=== PATIENT | male | born 1950 | race Caucasian/White ===

== ENCOUNTER → 2016-10-29 | Day surgery (SDC) | payer BC, OTHER ==
[~2016-10-29] MED LIST: ALLER-EASE180 MG PO; ASPIRIN81 M2 PO; LIPITOR20 MG PO; MULTI-DAY VITA1 EACH
--- NOTE | ~2016-10-29 | OR ---
Unit #: [id number] #: [id number] Patient: GINNA JOHNSON [id number] [address] [place], [place] [address] [id number] O MR#: [id number] NAME: GINNA JOHNSON ROOM: Date of Procedure: 10/29/2016 Admission Date: 10/29/2016 Surgeon: George Berger M.D. : 1950 Attending Physician: George Berger M.D. Primary Care Physician: Elroy Bailey M.D. OPERATIVE REPORT PREOPERATIVE DIAGNOSIS Colorectal cancer screening in an average-risk patient. PROCEDURE PERFORMED Colonoscopy up to cecum and terminal ileum with excellent preparation and good visualization. POSTOPERATIVE DIAGNOSES 1. Mild sigmoid and descending colon diverticulosis. 2. Small internal hemorrhoids. 3. Rest of the examination up to cecum and terminal ileum was normal. The quality of the prep was excellent. No polyps were present. RECOMMENDATIONS Repeat colonoscopy in 10 years. SEDATION USED MAC. DESCRIPTION OF PROCEDURE Following detailed explanation of the potential risks and complications of a colonoscopy, namely perforation, bleeding, and complications related to sedation, the patient was brought to GI lab and laid in the left lateral decubitus position. A digital rectal examination was performed, which was normal. Lubricated tip of the Olympus video colonoscope was inserted through the anus and advanced under direct vision. The scope was advanced and passed up to sigmoid into descending colon. Multiple small to medium-sized diverticula were noticed in this area. The scope tip was then navigated all the way up to cecum with visualization of the ileocecal valve and the appendiceal orifice. Preparation was excellent with good visualization and photodocumentation was obtained. Last several inches of the terminal ileum also visualized after intubation of the ileocecal valve and appeared normal. Successive segments of the colonic mucosa were examined upon withdrawal and appeared unremarkable. There being no polyps, mass lesions, or AVMs. Other than the left-sided diverticula, the patient was also noted to have small internal hemorrhoids seen at the anal verge. The scope was then withdrawn. The patient was returned to the recovery area. He tolerated the procedure without any postprocedure complications. Dictated by... Unit #: [id number] #: [id number] Patient: GINNA JOHNSON Nicole Hernandez/vilma TD: 10/29/2016 22:46 JOB #: [id number] CC: Elroy Bailey M.D. OPERATIVE REPORT Page 1 of 1 X George Berger MD X PROCEDURE OPERATIVE NOTE
== END | disposition home or self-care (01) ==
LOC: COPS 12:24
DX: Z12.11 Encounter for screening for malignant neoplasm of colon (principal); K57.30 Diverticulosis of large intestine without perforation or abscess without bleeding; K64.8 Other hemorrhoids; E78.5 Hyperlipidemia, unspecified; Z79.82 Long term (current) use of aspirin; Z79.899 Other long term (current) drug therapy; Z98.890 Other specified postprocedural states
CPT/HCPCS: J2250